=== PATIENT | male | born 1970 | race African-American/Black ===

== ENCOUNTER 2017-10-23 16:08 | Emergency (ER) | payer SELFPAY ==
[~2017-10-23] VITALS: Ht 198.1 cm; Wt 102.4 kg
[~2017-10-23 16:08] MED LIST: DEBROX6.5 % AU; NAPROSYN500 MG OR; NAPROSYN500 MG PO; NO; NO HOME MEDS; NO MEDS; ULTRAM50 MG PO
[2017-10-23] MEDS ORDERED: MOTRIN800 MG PO ×2 (16:42→16:53)
[2017-10-23 17:25] VITALS: BP 120/75
== END 2017-10-23 17:25 | disposition home or self-care (01) | DRG 554 ==
LOC: ED 16:08
DX: M17.11 Unilateral primary osteoarthritis, right knee (principal); M25.461 Effusion, right knee

== ENCOUNTER 2018-03-11 06:56 | Emergency (ER) | payer SELFPAY ==
[~2018-03-11] VITALS: Ht 198.1 cm; Wt 100.0 kg
[~2018-03-11 06:56] MED LIST changes: +MOTRIN800 MG PO
[2018-03-11] MEDS ORDERED: VOLTAREN - GENE75 MG PO (09:02)
[2018-03-11 09:06] VITALS: BP 118/76
== END 2018-03-11 09:15 | disposition home or self-care (01) | DRG 554 ==
LOC: ED 06:56
DX: M17.11 Unilateral primary osteoarthritis, right knee (principal); S39.012A Strain of muscle, fascia and tendon of lower back, initial encounter; X58.XXXA Exposure to other specified factors, initial encounter

== ENCOUNTER 2018-10-10 11:14 | Emergency (ER) | payer SELFPAY ==
[~2018-10-10] VITALS: Ht 198.1 cm; Wt 106.0 kg
[~2018-10-10 11:14] MED LIST changes: +VOLTAREN - GENE75 MG PO
[2018-10-10] MEDS ORDERED: FLEXERIL PO (11:35)
[2018-10-10] MEDS ORDERED: ULTRAM50 M1 PO (11:35)
[2018-10-10 11:50] VITALS: BP 128/64
== END 2018-10-10 11:50 | disposition home or self-care (01) | DRG 563 ==
LOC: ED 11:14
DX: S39.012A Strain of muscle, fascia and tendon of lower back, initial encounter (principal); M54.5 Low back pain; X58.XXXA Exposure to other specified factors, initial encounter; Y92.009 Unspecified place in unspecified non-institutional (private) residence as the place of occurrence of the external cause

== ENCOUNTER 2018-11-16 00:56 | Emergency (ER) | payer SELFPAY ==
[~2018-11-16] VITALS: Ht 198.1 cm; Wt 48.5 kg
[~2018-11-16 00:56] MED LIST changes: +FLEXERIL PO; +ULTRAM50 M1 PO
[2018-11-16 01:30] LABS: HEMOGLOBIN 13.5 g/dl (14.0-18.0); IMMATURE GRANULOCYTES 0.4 % (0.0-5.0); MEAN CORPUSCULAR HGB 30.8 pG CALC (26.0-32.0); MEAN CORPUSCULAR HGB CONC 34.6 g/L CALC (32.0-36.0); NEUT# 8.86 thou/uL (1.82-7.42); RED BLOOD COUNT 4.38 mill/uL (4.70-6.10); RED CELL DISTRI WIDTH 11.9 % (11.5-15.5)
[2018-11-16 01:31] LABS: URINE BILIRUBIN - DIPSTICK NEGATIVE (NEGATIVE); URINE BLOOD DIPSTICK NEGATIVE (NEGATIVE); URINE COLOR YELLOW; URINE GLUCOSE - DIPSTICK NEGATIVE (NEGATIVE); URINE KETONE 15 mg/dL (NEGATIVE); URINE LEUK ESTERASE NEGATIVE (NEGATIVE); URINE NITRITE - DIPSTICK NEGATIVE (Negative); URINE PROTEIN - DIPSTICK 30 mg/dL (NEG-TRACE)
[2018-11-16 01:47] LABS: ALBUMIN 4.5 g/dL (3.2-5.0); ALKALINE PHOSPHATASE 67 u/l (38-126); AMYLASE 64 u/l (30-110); ANION GAP 13 (6-22 (CALC)); BILIRUBIN, TOTAL 0.8 mg/dL (0.0-1.4); BUN 17 mg/dL (9-20); BUN/CREATININE RATIO 17 (12-20 (CALC)); CARBON DIOXIDE 28 mmol/l (22-30); CHLORIDE 103 mmol/l (95-108); GFR > 60 ML/MIN (>=60 (CALC)); GFR FOR AFR.AMER. > 60 ML/MIN (>=60 (CALC)); LIPASE 86 u/l (23-300); POTASSIUM 3.9 mmol/l (3.5-5.1); SGOT/AST 35 u/l (17-59); SODIUM 141 mmol/l (137-146); TOTAL PROTEIN 7.7 g/dL (6.3-8.2); URINE RBC 0-2 RBC/hpf (0-5); URINE WBC 0-2 WBC/hpf (0-5)
[2018-11-16] MEDS ORDERED: PHENERGAN25 MG/TAB PO (02:19)
[2018-11-16 02:35] VITALS: BP 128/70
== END 2018-11-16 02:35 | disposition home or self-care (01) | DRG 392 ==
LOC: ED 00:56
PROVIDERS: Family Medicine
DX: K52.9 Noninfective gastroenteritis and colitis, unspecified (principal)

== ENCOUNTER 2018-12-26 01:15 | Emergency (ER) | payer SELFPAY ==
[~2018-12-26] VITALS: Ht 195.6 cm; Wt 109.1 kg
[~2018-12-26 01:15] MED LIST changes: +PHENERGAN25 MG/TAB PO
[2018-12-26 01:59] LABS: HEMATOCRIT 38.7 % (39.0-50.0); IMMATURE GRANULOCYTES 0.1 % (0.0-5.0); MEAN CELL VOLUME 91.1 fL CALC (80.0-100.0); MEAN CORPUSCULAR HGB 30.6 pG CALC (26.0-32.0); MEAN CORPUSCULAR HGB CONC 33.6 g/L CALC (32.0-36.0); NEUT# 1.55 thou/uL (1.82-7.42); RED BLOOD COUNT 4.25 mill/uL (4.70-6.10); RED CELL DISTRI WIDTH 12.3 % (11.5-15.5)
[2018-12-26 02:05] LABS: ALBUMIN 4.3 g/dL (3.2-5.0); ALKALINE PHOSPHATASE 54 u/l (38-126); AMYLASE 73 u/l (30-110); ANION GAP 11 (6-22 (CALC)); BILIRUBIN, TOTAL 0.4 mg/dL (0.0-1.4); BUN 12 mg/dL (9-20); BUN/CREATININE RATIO 11 (12-20 (CALC)); CARBON DIOXIDE 32 mmol/l (22-30); CHLORIDE 104 mmol/l (95-108); CREATININE 1.1 mg/dL (0.7-1.3); GFR > 60 ML/MIN (>=60 (CALC)); GFR FOR AFR.AMER. > 60 ML/MIN (>=60 (CALC)); LIPASE 123 u/l (23-300); POTASSIUM 3.7 mmol/l (3.5-5.1); SGOT/AST 30 u/l (17-59); SODIUM 143 mmol/l (137-146); TOTAL PROTEIN 7.8 g/dL (6.3-8.2)
[2018-12-26 04:22] LABS: URINE BILIRUBIN - DIPSTICK NEGATIVE (NEGATIVE); URINE BLOOD DIPSTICK NEGATIVE (NEGATIVE); URINE COLOR YELLOW; URINE GLUCOSE - DIPSTICK NEGATIVE (NEGATIVE); URINE KETONE NEGATIVE (NEGATIVE); URINE LEUK ESTERASE NEGATIVE (NEGATIVE); URINE NITRITE - DIPSTICK NEGATIVE (Negative); URINE PH 6.5 (4.5-8.0); URINE PROTEIN - DIPSTICK NEGATIVE (NEG-TRACE)
[2018-12-26 04:28] LABS: BARBITURATES NEGATIVE (NEGATIVE); COCAINE NEGATIVE (NEGATIVE); METHADONE NEGATIVE (NEGATIVE); OXCYCODONE NEGATIVE (NEGATIVE); TETRAHYDROCANNABIONOL POSITIVE (NEGATIVE); TRICYLIC ANTIDEPRESSANTS NEGATIVE (NEGATIVE)
[2018-12-26 07:42] VITALS: BP 120/70
== END 2018-12-26 07:42 | disposition short-term general hospital (02) | DRG 395 ==
LOC: ED 01:15
PROVIDERS: Family Medicine
DX: K35.80 Unspecified acute appendicitis (principal)
CPT/HCPCS: Q9967

== ENCOUNTER 2019-01-13 16:35 | Emergency (ER) | payer OTHER ==
[~2019-01-13] VITALS: Ht 195.6 cm; Wt 94.1 kg
[2019-01-13 17:18] LABS: HEMATOCRIT 41.9 % (39.0-50.0); HEMOGLOBIN 13.7 g/dl (14.0-18.0); IMMATURE GRANULOCYTES 0.2 % (0.0-5.0); MEAN CELL VOLUME 92.7 fL CALC (80.0-100.0); MEAN CORPUSCULAR HGB 30.3 pG CALC (26.0-32.0); MEAN CORPUSCULAR HGB CONC 32.7 g/L CALC (32.0-36.0); NEUT# 2.72 thou/uL (1.82-7.42); RED BLOOD COUNT 4.52 mill/uL (4.70-6.10); RED CELL DISTRI WIDTH 12.6 % (11.5-15.5)
[2019-01-13 17:41] LABS: ALBUMIN 4.4 g/dL (3.2-5.0); ALKALINE PHOSPHATASE 68 u/l (38-126); ANION GAP 15 (6-22 (CALC)); BUN 14 mg/dL (9-20); BUN/CREATININE RATIO 14 (12-20 (CALC)); CARBON DIOXIDE 26 mmol/l (22-30); CHLORIDE 102 mmol/l (95-108); GFR > 60 ML/MIN (>=60 (CALC)); GFR FOR AFR.AMER. > 60 ML/MIN (>=60 (CALC)); POTASSIUM 4.2 mmol/l (3.5-5.1); SGOT/AST 39 u/l (17-59); SODIUM 138 mmol/l (137-146); TOTAL PROTEIN 8.6 g/dL (6.3-8.2)
[2019-01-13 17:42] LABS: BILIRUBIN, TOTAL 0.8 mg/dL (0.0-1.4)
[2019-01-13 18:45] VITALS: BP 128/71
== END 2019-01-13 18:56 | disposition home or self-care (01) | DRG 392 ==
LOC: ED 16:35
PROVIDERS: Family Medicine
DX: R10.9 Unspecified abdominal pain (principal); T81.31XA Disruption of external operation (surgical) wound, not elsewhere classified, initial encounter; V43.52XA Car driver injured in collision with other type car in traffic accident, initial encounter; Y83.6 Removal of other organ (partial) (total) as the cause of abnormal reaction of the patient, or of later complication, without mention of misadventure at the time of the procedure
CPT/HCPCS: Q9967

== ENCOUNTER 2024-08-19 16:01 | Emergency (ER) | payer SELFPAY ==
[~2024-08-19] VITALS: Ht 195.6 cm; Wt 99.0 kg
[2024-08-19 16:18] VITALS: BP 115/77
[2024-08-19] MEDS ORDERED: oxyCODONE 5MG/ ACETAMINOPHEN 325MG TAB PO ONE (16:25)
[2024-08-19 16:30] VITALS: BP 118/77
[2024-08-19 17:00] VITALS: BP 118/76
[2024-08-19] MEDS ORDERED: TRIAMCINOLONE ACETONIDE 200 MG/5 ML VIAL IA ONE (17:20)
[2024-08-19 17:30] VITALS: BP 119/78
[2024-08-19] MEDS ORDERED: PERCOCET 5/325M1 TAB PO (17:57)
[2024-08-19 18:00] VITALS: BP 122/80
[2024-08-19 18:02] VITALS: BP 122/80
== END 2024-08-19 18:00 | disposition home or self-care (01) | DRG 563 ==
LOC: ED 16:01
DX: S63.501A Unspecified sprain of right wrist, initial encounter (principal); F17.200 Nicotine dependence, unspecified, uncomplicated; X58.XXXA Exposure to other specified factors, initial encounter
CPT/HCPCS: J3301